=== PATIENT | male | born 1980 | race Caucasian/White ===

== ENCOUNTER 2024-01-22 21:29 | Emergency (ER) | payer OTHER, SELFPAY ==
[2024-01-22 21:29] VITALS: BP 169/98; PULSE 79; RESP 15; TEMP 36.1; O2SAT 100; BMI 36.7
--- NOTE | 2024-01-22 23:57 | CT_ITS ---
INDICATION: ? Mastoiditis EXAMINATION: CT IAC TEMPORAL BONES - CT IAC/PF/Orbit/Sella W/O Contrast Injection TECHNIQUE: Routine noncontrast CT protocol was performed of the internal auditory canals and temporal bones. 2-D reformats were performed by the technologist. The protocol utilizes one or more of the following dose reduction techniques: automated exposure control, adjustment of mA and/or kV according to patient size,and/or use of iterative reconstruction technique. IV Contrast dosage and agent: None. RADIATION DOSAGE (If Supplied By Facility): CTDIvol = ( 67.58 ) mGy, DLP = ( 1304.75 ) mGycm COMPARISON: FINDINGS: RIGHT SIDE: No fracture. SUPERFICIAL SOFT TISSUES: Unremarkable. MASTOID AIR CELLS: Well aerated, unremarkable. EXTERNAL AUDITORY CANALS: Clear. MIDDLE EAR CAVITIES: Well aerated. Ossicles and scutum intact. INTERNAL AUDITORY CANALS: Unremarkable bilateral internal auditory canals. No osseous erosion or widening of the canal. INNER EAR: Unremarkable cochlea, vestibule and semicircular canals. LEFT SIDE: No fracture. SUPERFICIAL SOFT TISSUES: Unremarkable. MASTOID AIR CELLS: Partial opacification of the mastoid air cells. EXTERNAL AUDITORY CANALS: There is complete opacification of the external auditory canal suggesting otitis externa. MIDDLE EAR CAVITIES: Partial opacification of the left middle ear suggesting otitis media. Ossicles and scutum intact. INTERNAL AUDITORY CANALS: Unremarkable bilateral internal auditory canals. No osseous erosion or widening of the canal. INNER EAR: Unremarkable cochlea, vestibule and semicircular canals. VISUALIZED BRAIN AND POSTERIOR FOSSA: Cerebello-pontine angles are unremarkable. CT/Orb Sella Post Fossa Ear w/o IMPRESSION: Otitis externa and otitis media on the left. Electronically Signed: Ziyad Blackburn MD at 1:28 EDT Reading Location ID and State: [facility] / [place] Tel , Service support ,
[2024-01-23] MEDS: Morphine 4 MG/ML Syringe IV (00:18)
[2024-01-23] MEDS: Ondansetron 4 MG/2 ML Vial IV (00:18)
[2024-01-23 00:29] LABS: Anion Gap 7 (5-15); BUN 14 mg/dL (7-18); BUN/Creat Ratio 18.2 RATIO (10-20); Calcium,Total 9.5 mg/dL (8.5-10.1); Chloride 104 mmol/L (98-107); Creatinine, Serum 0.77 mg/dL (0.70-1.30); EST Glomerular Filtration Rate 116 mL/min (>60); Est Glom Filt Rate - Afr Amer 140 mL/min (>60); Estimated Creatinine Clearance 159.28 ml/min; Glucose 102 mg/dL (74-106); Potassium 3.9 mmol/L (3.5-5.1); Sodium Level 136 mmol/L (136-145)
[2024-01-23 00:38] LABS: Absolute Lymphocyte Count 3.31 X10^3/uL (0.83-4.51); Absolute Neutrophil Count 7.7 X10^3/uL (2.0-7.7); Basophil# 0.09 X10^3/uL; Basophil% 0.7 % (0-1); Eosinophil# 0.37 X10^3/uL; Eosinophils% 2.9 % (0-5); Hematocrit 49.7 % (40-54); Hemoglobin 16.5 g/dL (13.0-16.5); Lymphocyte # 3.31 X10^3/ul (0.83-4.51); Lymphocyte % 26.3 % (19-41); Mean Corp Hgb Conc 33.2 g/dL (32-36); Mean Corpuscular Volume 93.2 fL (80-94); Monocyte# 1.02 X10^3/uL; Monocyte% 8.1 % (0-10); NRBC Flagged by Analyzer 0 % (0-5); Neutrophil # 7.73 X10^3/uL (2.7-7.7); Neutrophil % 61.4 % (47-70); Platelet Count 251 K/mm3 (150-450); RBC Distribution Width CV 13.6 % (11.6-14.6); RBC Distribution Width SD 46.4 fl (35.1-43.9); Red Blood Count 5.33 M/mm3 (4.6-6.2); White Blood Count 12.6 K/mm3 (4.4-11.0)
[2024-01-23 00:47] LABS: Lactic Acid 1.1 mmol/L (0.4-1.9)
[2024-01-23 01:29] VITALS: BP 150/115; PULSE 84; RESP 16; TEMP 36.4; O2SAT 97
--- NOTE | 2024-01-23 01:50 | EX.ED.DYSGE1 ---
HPI History of Present Illness Chief Complaint: Ear Problem Informant: patient Narrative Narrative: Patient is a 43-year-old male with past medical history of hypertension and depression. He states he noticed he was having left ear pain and swelling for approximately 1 week. He states there was no associated discharge or trauma prior to the swelling beginning. He went to an urgent care on Monday and was diagnosed with otitis externa and placed on Ciprodex eardrops. He states he used those for the past 24 hours but despite doing so he feels like he has had increased swelling and pain and therefore comes in for evaluation. Patient denies any history of immunosuppression [facility] Medical History (Updated 01/23/24 @ 02:[address] Alexis Mckeon, ) Cough Acute pharyngitis, unspecified Depression Seasonal allergies Shoulder pain HTN (hypertension) Home Medications ?Medication ?Instructions ?Recorded ?Last Taken ?Type amoxicillin 875 mg-potassium 1 tab PO BID #20 tabs 10/22/22 Unknown Rx clavulanate 125 mg tablet atorvastatin 10 mg tablet 10 mg PO DAILY 01/23/24 Unknown History ciprofloxacin HCl 500 mg tablet 500 mg PO BID 10 days #20 tabs 01/23/24 Unknown Rx (Cipro) escitalopram oxalate 10 mg tablet 10 mg PO DAILY 01/23/24 Unknown History hydrochlorothiazide 25 mg tablet 25 mg PO DAILY 01/23/24 Unknown History losartan 50 mg tablet 50 mg PO DAILY 01/23/24 Unknown History ondansetron 4 mg disintegrating 4 mg PO TID PRN nausea and 01/23/24 Unknown Rx tablet vomiting #21 tabs oxycodone-acetaminophen 5 mg-325 1 tab PO Q6H PRN pain 3 days #12 01/23/24 Unknown Rx mg tablet (Percocet) tabs Allergy/AdvReac Type Severity Reaction Status Date / Time codeine Allergy Intermediate Nausea Verified 01/22/24 21:30 Social History (Updated 10/22/22 @ 13:18 by Audra Muñiz) Smoking Status: Current every day smoker tobacco type: cigarettes ROS ROS ED Constitutional Constitutional ED: Denies chills or fever(s) ENT ENT ED: Reports ear pain left; Denies rhinorrhea or sore throat Cardiovascular Cardiovascular: Denies chest pain Respiratory/Chest Respiratory/Chest: Denies cough or dyspnea Gastrointestinal Gastrointestinal: Denies abdominal pain, diarrhea, nausea or vomiting Genitourinary Genitourinary ED: Denies dysuria Musculoskeletal Musculoskeletal: Denies myalgias or neck pain Integumentary Denies rash Neurologic Neurologic: Denies headache(s) Psychiatric Psychiatric: Reports depression Hematologic/Lymphatic Hematologic/Lymphatic: Denies easy bleeding or easy bruising Allergic/Immunologic Allergic/Immunologic ED: Denies mouth swelling or tongue swelling EXAM Physical Exam Const Vital Signs: 01/22/24 21:29 01/23/24 01:29 01/23/24 01:29 Temperature 97 F L 97.5 F L Temperature Source Temporal Pulse Rate 79 84 84 Respiratory Rate 15 16 16 Blood Pressure 169/98 H 150/115 H 150/115 H Blood Pressure Mean 121 126 126 Pulse Ox 100 97 97 Positive well nourished and well developed General Appearance ED: well developed HEENT HEENT Narrative: The left ear canal is severely edematous and the TM cannot be visualized secondary to this. There is no obvious discharge present in the canal. The patient's outer upper half of the left ear is also edematous without erythema or warmth. There is swelling along the left anterior aspect of the ear near the preauricular lymph node without obvious abscess formation. There is faint left sided mastoid tenderness with palpation but no overlying erythema or swelling. No tongue or lip swelling noted no oral lesions no airway edema or compromise No secondary findings to suggest infection of the posterior pharynx Right ear, ear canal, and tympanic membrane are normal Eyes PERRL and EOMs intact bilaterally Neck supple Neck Narrative: No nuchal rigidity or meningeal signs Resp normal respiratory effort and clear to auscultation bilaterally Cardio regular rate and regular rhythm Extremity normal to inspection Neuro oriented x3, CN's II-XII intact bilaterally and no sensory deficits noted Sensorium / Orientation: alert Motor Exam: strength 5/5 throughout Psych mental status grossly normal Skin Skin Narrative: Soft tissue swelling along the left preauricular lymph node and left ear as documented above MDM MDM MDM Narrative Medical decision making narrative: Patient arrived to the ER hypertensive but otherwise with stable vitals. He has only been on eardrops for approximately 24 hours but with the patient reported increased swelling and pain and there is concern for malignant otitis externa versus mastoiditis versus osteomyelitis. Basic blood work was obtained and shows mild leukocytosis of 12.6 but no lactic acidosis or elevation to his absolute neutrophil count. CT of the orbits did reveal changes consistent with otitis media and otitis externa but did not show abscess formation free air or bony destruction. Therefore at this time as he is afebrile and only lab abnormalities mild leukocytosis and the CT scan does not reveal perforation or bony erosion I do not feel there is need for admission. Patient will continue the eardrops provided by urgent care the oral Cipro will be added secondary to concern for malignant otitis externa. However as he is hemodynamically stable he will follow-up with ENT as an outpatient as I do not feel there is need for IV antibiotics at this time. The patient did have an ear wick placed as his physical exam showed complete obstruction of the left ear canal and this will be required to transmit the otic antibiotics The patient did voice his understanding of the plan and otherwise is safe for discharge. History & Record Review Discussion w/independent historian: Patient Lab Data Attestation: I reviewed the patient's lab results. Labs: Laboratory Results - last 24 hr 01/23/24 00:08 WBC 12.6 H RBC 5.33 Hgb 16.5 Hct 49.7 MCV 93.2 MCH 31.0 MCHC 33.2 RDW Std Deviation 46.4 H RDW Coeff of [place] 13.6 Plt Count 251 MPV 11.0 Immature Gran % (Auto) 0.600 Neut % (Auto) 61.4 Lymph % (Auto) 26.3 [place] % (Auto) 8.1 Eos % (Auto) 2.9 Baso % (Auto) 0.7 Absolute Neuts (auto) 7.7 Absolute Lymphs (auto) 3.31 Nucleated RBC % 0 Sodium 136 Potassium 3.9 Chloride 104 Carbon Dioxide 25.0 Anion Gap 7 BUN 14 Creatinine 0.77 Estim Creat Clear Calc 159.28 Est GFR (MDRD) Af Amer 140 Est GFR (MDRD) Non-Af 116 BUN/Creatinine Ratio 18.2 Glucose 102 Lactic Acid 1.1 Calcium 9.5 Radiography Diagnostic Testing: Clinical Impression(s) from Imaging Studies CT Orbit Sella Inner 01/22/24 23:57 IMPRESSION: Otitis externa and otitis media on the left. Electronically Signed: Ziyad Blackburn MD at 1:28 EDT , Discharge Plan Triage Chief Complaint: Ear Problem ED Provider: Alexis Mckeon Dx/Rx/DC Orders Clinical Impression: Otitis externa, Otitis media, HTN (hypertension), Depression Instructions: ED Otitis Media Adult, ED External Ear Infection (Adult) Prescriptions: New ciprofloxacin HCl [Cipro] 500 mg tablet 500 mg PO BID 10 Days Qty: 20 0RF ondansetron 4 mg tablet,disintegrating 4 mg PO TID PRN (Reason: nausea and vomiting) Qty: 21 0RF oxycodone-acetaminophen [Percocet] 5-325 mg tablet 1 tab PO Q6H PRN (Reason: pain) 3 Days Qty: 12 0RF No Action amoxicillin-pot clavulanate 875-125 mg tablet 1 tab PO BID Qty: 20 0RF losartan 50 mg tablet 50 mg PO DAILY atorvastatin 10 mg tablet 10 mg PO DAILY hydrochlorothiazide 25 mg tablet 25 mg PO DAILY escitalopram oxalate 10 mg tablet 10 mg PO DAILY Primary Care Provider: Genevieve Park Referrals: Fantasma Johnson MD [Med Staff - Active Staff] - Genevieve Park MD [Primary Care Provider] - Activity Restrictions/Additional Instructions: Please continue the eardrops that were given to you by the urgent care that had the oral ciprofloxacin prescribed by the ER for further infection control. Follow-up with the ear nose and throat doctor for further evaluation and return to the ER should you have any further concerns. Print Language: Portuguese Disposition Disposition: Home, Self Care Discharge Date/Time: 01/23/24 02:15
[2024-01-23] MEDS: oxyCODONE 5 MG Tablet 10 MG PO (02:09)
[2024-01-23] MEDS: Ciprofloxacin 500 MG Tablet PO (02:09)
== END 2024-01-23 02:15 | disposition home or self-care (01) ==
PROVIDERS: Emergency Provider Emergency Medicine; PCP Family Medicine; Visit Provider Emergency Medicine
DX: H66.92 Otitis media, unspecified, left ear (principal); H60.92 Unspecified otitis externa, left ear; I10 Essential (primary) hypertension; F32.A Depression, unspecified; Z79.899 Other long term (current) drug therapy; F17.210 Nicotine dependence, cigarettes, uncomplicated
CPT/HCPCS: 70480; 80048; 83605; 85025; 96374; 96375; 99284; A4216; J2405

== ENCOUNTER 2024-06-16 23:48 | Emergency (ER) | payer OTHER, SELFPAY ==
[2024-06-16 23:48] VITALS: BP 226/91; PULSE 83; RESP 19; TEMP 36.7; O2SAT 98; BMI 39.5
[2024-06-16 23:53] VITALS: BP 226/91
[2024-06-17] MEDS: diazePAM 5 MG Tablet PO (00:17)
[2024-06-17] MEDS: Acetaminophen 500 MG Tablet 1000 MG PO (00:17)
--- NOTE | 2024-06-17 00:26 | EDS_ITS ---
HPI History of Present Illness Chief Complaint: Other, Pain/Inj Informant: patient and spouse/S.O. Narrative Narrative: Nontraumatic left-sided neck pain around 2 PM today while sitting at the computer. No pain down the arm or in the scapular region. Reports he took an Aleve and then dose of Flexeril earlier this afternoon. Symptoms resolved. After dinner symptoms return however also has pain in his left ear and left jaw. He had history of serious ear infection in the past per patient. He has no fevers or chills. Denies hearing loss. On arrival blood pressure elevated 226/91 denies headache chest pain abdominal pain nausea or vomiting. History of hypertension and states he is compliant with his medication last dose this morning. States his typical blood pressure is normal with his medications. Prior similar symptoms: Yes [facility] Medical History Cough Acute pharyngitis, unspecified Depression Seasonal allergies Shoulder pain HTN (hypertension) Home Medications ?Medication ?Instructions ?Recorded ?Last Taken ?Type amoxicillin 875 mg-potassium 1 tab PO BID #20 tabs 12/07 Unknown Rx clavulanate 125 mg tablet atorvastatin 10 mg tablet 10 mg PO DAILY 01/23/24 Unkn own History ciprofloxacin HCl 500 mg tablet 500 mg PO BID 10 days #20 tabs 01/23/24 Unknown Rx (Cipro) escitalopram oxalate 10 mg tablet 10 mg PO DAILY 01/22 Unknown History hydrochlorothiazide 25 mg tablet 25 mg PO DAILY Unknown History losartan 50 mg tablet 50 mg PO DAILY 01/23/24 Unkn own History ondansetron 4 mg disintegrating 4 mg PO TID PRN nausea and 01/23/24 Unknown Rx tablet vomiting #21 tabs oxycodone-acetaminophen 5 mg-325 1 tab PO Q6H PRN pain 3 days #12 01/23/24 Unknown Rx mg tablet (Percocet) tabs carbamazepine 100 mg 100 mg PO BID #30 tabs 06/17 Unknown Rx tablet,extended release,12 hr diazepam 5 mg tablet 5 mg PO Q8 PRN Muscle Spasm #20 06/17/24 Unknown Rx tabs Allergy/AdvReac Type Severity Reaction Status Date / Time codeine Allergy Intermediate Nausea Verified 06/16/24 23:53 Surgical History History of dental surgery Social History Smoking Status: Current every day smoker tobacco type: cigarettes ROS ROS ED Constitutional Constitutional ED: Denies chills, fever(s) or sweats ENT ENT ED: Denies sore throat Cardiovascular Cardiovascular: Denies chest pain, leg edema, palpitations or racing heartbeat Respiratory/Chest Respiratory/Chest: Denies cough, dyspnea or dyspnea on exertion Gastrointestinal Gastrointestinal: Denies abdominal pain, diarrhea, nausea or vomiting Genitourinary Genitourinary ED: Denies dysuria, hematuria or urinary frequency Musculoskeletal Musculoskeletal: Reports neck pain; Denies back pain or extremity pain Integumentary Denies rash or wounds Neurologic Neurologic: Denies headache(s), paresthesias or weakness EXAM Physical Exam Const Vital Signs: 06/16/24 23:48 06/16/24 23:53 06/16/24 23:54 Temperature 98.1 F Temperature Source Oral Pulse Rate 83 Respiratory Rate 19 H Respiratory Effort Normal Non-Labored Respiratory Pattern Normal Blood Pressure 226/91 H 226/91 H Blood Pressure Mean 136 136 Pulse Ox 98 Oxygen Delivery Method Room Air Room Air 06/17/24 00:54 06/17/24 02:05 Temperature Temperature Source Pulse Rate Respiratory Rate Respiratory Effort Respiratory Pattern Blood Pressure 218/98 H 175/92 H Blood Pressure Mean 138 119 Pulse Ox Oxygen Delivery Method Positive well nourished and well developed General Appearance ED: well developed and NAD HEENT Reports moist mucous membranes normocephalic and atraumatic Eyes General Eye ED: Yes normal appearance of both eyes Neck full ROM Neck Narrative: Somatic function cervical spine right side side bent rotated to the right with extension. Chest Wall Chest: Negative for tenderness Resp normal respiratory effort and normal air movement Effort and Inspection: symmetric chest movement; Negative for respiratory distress Cardio regular rate, regular rhythm and no murmurs Peripheral Pulses: pulses 2+ throughout GI normal to inspection, nondistended, normoactive bowel sounds and non-tender Palpation: Negative for guarding or rebound tenderness present Extremity normal to inspection General Extremety ED: Negative for edema or tenderness General Extremity: Negative for edema Neuro oriented x3 and no sensory deficits noted Sensorium / Orientation: awake and alert Skin no rashes or lesions noted and no wounds MDM MDM MDM Narrative Medical decision making narrative: Interventions / MDM: Differential diagnosis: Cervical neck strain, spinal dysfunction cervical spine, elevated blood pressure. Trigeminal neuralgia. Diagnosis considered but do not suspect: No clinical hypertensive emergency. My EKG interpretation: N/A Imaging independently reviewed and interpreted by myself: N/A External documents reviewed: N/A Test considered but not ordered:N/A ED course: Patient elevated blood pressure reported compliance with normal blood pressure with medications. Likely situation with this neck pain. Discussed osteopathic manipulation bedside for which she agreed to perform facilitate position release with improved movement. Send order for Tylenol and Valium to help additional symptoms. Will monitor and recheck blood pressure. 0100: Neck pain and movement improving. Her blood pressure 218/98. He reports continued pain left face maxillary nerve region. Discussed trigeminal neuralgia symptoms. Discussed starting treatment for which she agrees. Will start with Tegretol 100 mg p.o. 0200: Reevaluation facial pain improving blood pressure down to 175/92. However blood pressure likely situational from pain. He states he is compliant with the blood pressure medicines. Discussed keeping a log of his blood pressure medicine. Given prescription 2 weeks of carbamazepine for trigeminal neuralgia. Will switch to more Valium for his neck strain. He will hold his Flexeril. He will avoid NSAIDs and use Tylenol. He has an upcoming appoint with his PCP for outpatient reevaluation. All questions were answered. Re-evaluation: stable Disposition discussed with patient/family/significant other: Patient and significant other Case discussed with consulting clinician: N/A This note was generated with [employer] dictation software. It may contain incorrect words, spelling, and punctuation that were not noted in checking the note before signing. Discharge Plan Triage Chief Complaint: Other, Pain/Inj ED Provider: Guero Mahmood Dx/Rx/DC Orders Clinical Impression: Cervical somatic dysfunction, Trigeminal neuralgia, Elevated blood pressure reading in office with diagnosis of hypertension Instructions: Hypertension Dc, ED Neck Sprain or Strain, ED Trigeminal Neuralgia Prescriptions: New diazepam 5 mg tablet 5 mg PO Q8 PRN (Reason: Muscle Spasm) Qty: 20 0RF carbamazepine 100 mg tablet extended release 12 hr 100 mg PO BID Qty: 30 0RF No Action amoxicillin-pot clavulanate 875-125 mg tablet 1 tab PO BID Qty: 20 0RF losartan 50 mg tablet 50 mg PO DAILY atorvastatin 10 mg tablet 10 mg PO DAILY hydrochlorothiazide 25 mg tablet 25 mg PO DAILY escitalopram oxalate 10 mg tablet 10 mg PO DAILY ciprofloxacin HCl [Cipro] 500 mg tablet 500 mg PO BID 10 Days Qty: 20 0RF ondansetron 4 mg tablet,disintegrating 4 mg PO TID PRN (Reason: nausea and vomiting) Qty: 21 0RF oxycodone-acetaminophen [Percocet] 5-325 mg tablet 1 tab PO Q6H PRN (Reason: pain) 3 Days Qty: 12 0RF Primary Care Provider: Genevieve Park Referrals: Genevieve Park MD [Primary Care Provider] - Keep Mansi appointment Activity Restrictions/Additional Instructions: Use Tylenol up to 1 g every 6 hours as needed for pain. Use Valium as needed for neck pain. Avoid your Aleve and NSAIDs at this time as he had elevated blood pressure. Hold your Flexeril while taking Valium. Facial pain being treated with trigeminal neuralgia. Take carbamazepine as prescribed. Blood pressure elevated in the ED with treatment of your pain symptoms down to 175/92. Continue home blood pressure medicines. Keep a log of your blood pressure. Follow-up with your doctor for reevaluation. Print Language: Hungarian Disposition Disposition: Home, Self Care Discharge Date/Time: 06/17/24 02:12
[2024-06-17 00:54] VITALS: BP 218/98
[2024-06-17] MEDS: carBAMazepine 200 MG Tablet 100 MG PO (01:08)
[2024-06-17 02:05] VITALS: BP 175/92
== END 2024-06-17 02:12 | disposition home or self-care (01) ==
PROVIDERS: Emergency Provider Emergency Medicine; PCP Family Medicine; Visit Provider Emergency Medicine
DX: M54.2 Cervicalgia (principal); G50.0 Trigeminal neuralgia; M99.01 Segmental and somatic dysfunction of cervical region; R03.0 Elevated blood-pressure reading, without diagnosis of hypertension; F32.A Depression, unspecified; Z79.899 Other long term (current) drug therapy; I10 Essential (primary) hypertension; F17.210 Nicotine dependence, cigarettes, uncomplicated
CPT/HCPCS: 99283

== ENCOUNTER 2024-12-09 06:06 | Day surgery (SDC) | payer OTHER, SELFPAY ==
[2024-12-09] VITALS (9 sets, daily range): BP systolic 84–168; BP diastolic 46–86; PULSE 60–81; RESP 16; TEMP 36.3–36.4; O2SAT 94–99; BMI 37.9
--- OUTSIDE RECORDS SUMMARY | 2024-12-09 06:08 | XMS RPT_ITS | CCD ---
Author Organization [facility] Care Team Providers Care Apple Checker Name Role Phone Tena Gutierrez MD Primary Care Provider Stefanie Park MD Primary Care Provider [phone] STEFANIE PARK Primary Care Unavailable Stefanie Park MD Primary Care Provider Stefanie Park MD Primary Care Provider Xavier MACIAS, Dr. Vallejo Primary Care Provider Dr. Stefanie Park MD Referring Provider [phone] Kam GARCIA-CGiana Attending Provider [phone] Stefanie Park Primary Care Unavailable Alexis Mckeon Attending Unavailable Park, Stefanie Primary Care Unavailable Guero Mahmood Attending Unavailable Park, Stefanie Primary Care Unavailable Rich Prado Attending Unavailable Park, Stefanie Referring Unavailable Park, Stefanie Referring Unavailable Park, Stefanie Primary Care Unavailable Giana Humphrey Attending Unavailable Allergies Allergy Classification Reported Allergen(s) Allergy Type Date of Onset Reaction(s) Facility (2 sources) Codeine Drug Allergy 0 Other: See Comments [facility] (1 source) Codeine Drug Allergy 5 [facility] Repository Medications Current Medications Medication Drug Class(es) Dates Sig (Normalized) Sig (Original) acetaminophen 325 mg / oxyCODONE hydrochloride 5 mg oral tablet (1 source) Opioid Agonist Start: 01-23-2024 take 1 tablet by mouth every six hours as needed for pain Oxycodone-Acetamin ophen (Percocet) 5-325 mg tablet Active 1 {tbl} PO EVERY 6 HOURS as needed for pain 12 3 0 January 23, 2024 Otitis externa Unspecified otitis externa, unspecified ear amoxicillin 875 mg / clavulanate 125 mg oral tablet (1 source) Penicillin-class Antibacterial Start: 10-22-2022 Amoxicillin-Pot Clavulanate 875-125 mg tablet Active 1 {tbl} PO TWICE A DAY October 22, 2022 12:00am atorvastatin 10 mg oral tablet (2 sources) HMG-CoA Reductase Inhibitor Start: 01-23-2024 take 1 tablet by mouth once daily Atorvastatin 10 mg tablet Active 10 mg PO DAILY January 23, 2024 12:00am take 1 tablet by mouth once margaret y atorvastatin (LIPITOR) 10 mg tablet Take 10 mg by mouth once daily. Active 12 hr carBAMazepine 100 mg extended release oral tablet (1 source) Mood Stabilizer Start: 06-17-2024 take 1 tablet by mouth twice daily Carbamazepine 100 mg tablet extended release 12 hr Active 100 mg PO TWICE A DAY June 17, 2024 1:00am ciprofloxacin 500 mg oral tablet (1 source) Quinolone Antimicrobial Start: 01-23-2024 take 1 tablet by mouth twice daily Ciprofloxacin Hcl (Cipro) 500 mg tablet Active 500 mg PO TWICE A DAY January 23, 2024 12:00am ciprofloxacin 3 mg/ml / dexamethasone 1 mg/ml otic suspension (1 source) Corticosteroid, Quinolone Antimicrobial Start: 01-21-2024 End: 01-28-2024 ciprofloxacin-dexA METHasone (CIPRODEX) 0.3-0.1 % otic suspension Indications: Acute otitis externa of left ear, unspecified type Use 4 Drops in the left ear two times a day for 7 days. 7.5 mL 01/21/2024 01/28/2024 Active diazePAM 5 mg oral tablet (1 source) Benzodiazepine Start: 06-17-2024 take 1 tablet by mouth every eight hours as needed for muscle spasms Diazepam 5 mg tablet Active 5 mg PO EVERY 8 HOURS as needed for Muscle Spasm June 17, 2024 1:00am escitalopram 10 mg oral tablet (2 sources) Serotonin Reuptake Inhibitor Start: 01-23-2024 take 1 tablet by mouth once daily Escitalopram Oxalate 10 mg tablet Active 10 mg PO DAILY January 23, 2024 12:00am take 1 tablet by mouth once margaret y escitalopram oxalate (LEXAPRO) 20 mg tablet Take 20 mg by mouth once daily. Active hydroCHLOROthiazide 25 mg oral tablet (2 sources) Thiazide Diuretic Start: 10-08-2024 take 1 tablet by mouth once daily Hydrochlorothiazide 25 mg tablet Active 25 mg PO DAILY January 23, 2024 12:00am take 1 tablet by mouth once margaret y hydroCHLOROthiazide 25 mg tablet Take 25 mg by mouth once daily. Active losartan potassium 50 mg oral tablet (2 sources) Angiotensin 2 Receptor Candido Start: 01-23-2024 take 1 tablet by mouth once daily Losartan 50 mg tablet Active 50 mg PO DAILY January 23, 2024 12:00am take 1 tablet by mouth once margaret y losartan (COZAAR) 50 mg tablet Take 50 mg by mouth once daily. Active ondansetron 4 mg disintegrating oral tablet (1 source) Serotonin-3 Receptor Antagonist Start: 01-23-2024 take 1 tablet by mouth three times daily as needed for nausea and vomiting Ondansetron 4 mg tablet,disintegrating Active 4 mg PO THREE TIMES A DAY as needed for nausea and vomiting 21 0 January 23, 2024 1:51am Problems Active Problems Problem Classification Problem Date Documented Da te Episodic/Chronic Essential hypertension (2 sources) Elevated blood pressure; Translations: [Essential (primary) hypertension] 06-25-2024 Chronic Mood disorders (1 source) Depressive disorder; Translations: [Depression] 10-22-2022 Chronic Other bone disease and musculoskeletal deformities (1 source) Cervical somatic dysfunction; Translations: [Segmental and somatic dysfunction of cervical region] 06-25-2024 Episodic Other ear and sense organ disorders (1 source) Otitis externa; Translations: [Unspecified otitis externa, unspecified ear] 01-31-2024 Chronic Other ear and sense organ disorders (1 source) Acute otitis externa of left ear; Translations: [Unspecified acute noninfective otitis externa, left ear] 01-21-2024 Episodic Other lower respiratory disease (1 source) Cough; Translations: [Cough] 10-22-2022 Episodic Other nervous system disorders (1 source) Trigeminal neuralgia; Translations: [Trigeminal neuralgia] 06-25-2024 Episodic Other upper respiratory infections (1 source) Acute pharyngitis; Translations: [Acute pharyngitis, unspecified] 10-22-2022 Episodic Otitis media and related conditions (1 source) Otitis media; Translations: [Otitis media, unspecified, unspecified ear] 01-31-2024 Episodic Past or Other Problems Problem Classification Problem Date Documented Da te Episodic/Chronic Other ear and sense organ disorders (1 source) Otalgia, left ear; Translations: [Otalgia, left ear] Onset: 02-16-2024 Episodic Spondylosis; intervertebral disc disorders; other back problems (1 source) Cervicalgia; Translations: [Cervicalgia] Onset: 06-28-2024 Episodic Results Test Name Value Interpretation Reference Range Facility Gastroenterology Visit Repor ton 11-05-2024 Gastroenterology Visit Report [facility] [address] [place] [address] OFFICE VISIT Date of Service: 11/05/24 MR#: [id number] Acct: [id number] Name: GOOD PEREZ Rep #: [id number] : 1980 Provider: ZAHRA cali Age/Sex: 43/M [place] [facility] [place]: Signed Intake Vital Signs 06/16/24 23:48 Height 5 ft 10 in Intake Visit Reasons: Positive FIT test Allergies codeine Allergy (Intermediate, Verified 11/05/24 14:10) Nausea Medications ???Medication ???Instructions ???Recorded ???Confirmed ???Type amoxicillin 875 mg-potassium 1 tab PO BID #20 tabs 10/22/22 Rx clavulanate 125 mg tablet atorvastatin 10 mg tablet 10 mg PO DAILY 01/23/24 11/05/24 H istory ciprofloxacin HCl 500 mg tablet 500 mg PO BID 10 days #20 tabs 12/0811/05/24 Rx (Cipro) escitalopram oxalate 10 mg tablet 10 mg PO DAILY 01/23/24 11/05/24 History hydrochlorothiazide 25 mg tablet 25 mg PO DAILY 01/23/24 11/05/24 H istory losartan 50 mg tablet 50 mg PO DAILY 01/23/24 11/05/24 H istory ondansetron 4 mg disintegrating 4 mg PO TID PRN nausea and 4 11/05/24 Rx tablet vomiting #21 tabs oxycodone-acetaminophen 5 mg-325 1 tab PO Q6H PRN pain 3 days #12 1 11/05/24 Rx mg tablet (Percocet) tabs carbamazepine 100 mg 100 mg PO BID #30 tabs 06/17/24 Rx tablet,extended release,12 hr diazepam 5 mg tablet 5 mg PO Q8 PRN Muscle Spasm #20 11/05/24 Rx tabs PFSH Medical History Cough Acute pharyngitis, unspecified Depression Seasonal allergies Shoulder pain HTN (hypertension) Surgical History History of dental surgery Social History Smoking Status: Current every day smoker tobacco type: cigarettes HPI HPI Details: GOOD PEREZ, is a 43 M who presents to the office today for establishment with [facility] regarding a positive fecal assay test. Referred by his PCP due to positive mail order stool testing. He denies family history of colon cancer and autoimmune disease. He denies abdominal pain, bloating, constipation, diarrhea, hematochezia, and melena. He reports complete BMs twice daily to every other day without straining. He reports difficulty chewing due to poor dentition. And reports that he can get combative when waking from anesthesia and states that it usually takes him longer to wake up from anesthesia. He smokes 2ppd, has the stuff that helps you quit, just needs to use it. He denies alcohol and illicit drug use. ROS Const Constitutional: Positive for weight change; No fatigue or fever(s) ENT ENT: No difficulty swallowing Gastro GI: No abdominal pain, belching, bloating, change in bowel habits, change in stool character, coffee ground emesis, constipation, cramping, diarrhea, heartburn, difficulty swallowing, feeling full early, excessive flatus, incontinent of stools, Vomiting blood/hematemesis, Blood in stool, loose stools, Black,tarry stools, nausea/dyspepsia, pain with swallowing, vomiting or other Musc Musculoskeletal: Positive for back pain, numbness and tingling; No joint pain Skin Skin: No yellowing of the eye or itchy eyes Neuro Neurology: Positive for numbness and tingling Psych Psychiatric: Positive for anxiety and No depression Endo Endocrine: Positive for weight change; No fatigue Aller/Imm Allergy/Immunologic: No itchy eyes Edgar/Lymp Hematologic/Lymphatic: No easy bleeding or easy bruising Exam Const General: cooperative, healthy appearing, comfortable and no acute distress Nutritional Appearance: average body habitus Orientation: alert and oriented x3 HENMT Head: normal to inspection Ears: hearing grossly normal bilaterally Eyes General: appearance normal, both eyes and all related structures Sclera: sclerae normal Neck Neck: normal visual inspection and full ROM Chest Chest palpation inspection: normal inspection of the chest Resp Effort Inspection: normal respiratory effort, able to speak in complete sentences and symmetric chest movement GI Inspection: obesity Auscultation: normal bowel sounds Palpation: soft and no hepatosplenomegaly Skin General: no rashes or lesions noted Neuro General: patient alert, patient oriented x3 and moves all extremities Cognition: normal cognition Speech: speech normal Gait: normal gait Extrem General: full ROM Psych Appearance: grossly normal Mental Status: mental status grossly normal Mood: congruent mood Judgment: judgment good Assessment and Plan Assessment and Plan (1) Screening for colorectal cancer: Status: Acute Plan GOOD PEREZ, is a 43 M who presents to the (more content not included)... Normal [facility] Emergency Department Summary on 06-17-2024 Emergency Department Summary [facility] Medical Records Department [address] [place] [address] Emergency Department Summary 06/17/24 MR#: [id number] Acct: [id number] Name: GOOD PEREZ Rep #: [id number] : 1980 43 From: Guero Vega PCP: Dr. Stefanie Park MD Status:DEP ER Location: ED HPI History of Present Illness Chief Complaint: Other, Pain/Inj Informant: patient and spouse/S.O. Narrative Narrative: Nontraumatic left-sided neck pain around 2 PM today while sitting at the computer. No pain down the arm or in the scapular region. Reports he took an Aleve and then dose of Flexeril earlier this afternoon. Symptoms resolved. After dinner symptoms return however also has pain in his left ear and left jaw. He had history of serious ear infection in the past per patient. He has no fevers or chills. Denies hearing loss. On arrival blood pressure elevated 226/91 denies headache chest pain abdominal pain nausea or vomiting. History of hypertension and states he is compliant with his medication last dose this morning. States his typical blood pressure is normal with his medications. Prior similar symptoms: Yes [facility] Medical History Cough Acute pharyngitis, unspecified Depression Seasonal allergies Shoulder pain HTN (hypertension) Home Medications ???Medication ???Instructions ???Recorded ???Last Taken ???Type amoxicillin 875 mg-potassium 1 tab PO BID #20 tabs 10/22/22 Unk nown Rx clavulanate 125 mg tablet atorvastatin 10 mg tablet 10 mg PO DAILY 01/23/24 Unknown Hi story ciprofloxacin HCl 500 mg tablet 500 mg PO BID 10 days #20 tabs 12/08 Unknown Rx (Cipro) escitalopram oxalate 10 mg tablet 10 mg PO DAILY 01/23/24 Unknown H istory hydrochlorothiazide 25 mg tablet 25 mg PO DAILY 01/23/24 Unknown Hi story losartan 50 mg tablet 50 mg PO DAILY 01/23/24 Unknown Hi story ondansetron 4 mg disintegrating 4 mg PO TID PRN nausea and 4 Unknown Rx tablet vomiting #21 tabs oxycodone-acetaminophen 5 mg-325 1 tab PO Q6H PRN pain 3 days #12 1 Unknown Rx mg tablet (Percocet) tabs carbamazepine 100 mg 100 mg PO BID #30 tabs 06/17/24 Un known Rx tablet,extended release,12 hr diazepam 5 mg tablet 5 mg PO Q8 PRN Muscle Spasm #20 Unknown Rx tabs Allergy/AdvReac Type Severity Reaction Status Date / Time codeine Allergy Intermediate Nausea Verified 06/16/24 23:53 Surgical History History of dental surgery Social History Smoking Status: Current every day smoker tobacco type: cigarettes ROS ROS ED Constitutional Constitutional ED: Denies chills, fever(s) or sweats ENT ENT ED: Denies sore throat Cardiovascular Cardiovascular: Denies chest pain, leg edema, palpitations or racing heartbeat Respiratory/Chest Respiratory/Chest: Denies cough, dyspnea or dyspnea on exertion Gastrointestinal Gastrointestinal: Denies abdominal pain, diarrhea, nausea or vomiting Genitourinary Genitourinary ED: Denies dysuria, hematuria or urinary frequency Musculoskeletal Musculoskeletal: Reports neck pain; Denies back pain or extremity pain Integumentary Denies rash or wounds Neurologic Neurologic: Denies headache(s), paresthesias or weakness EXAM Physical Exam Const Vital Signs: 06/16/24 23:48 06/16/24 23:53 06/16/24 23:54 Temperature 98.1 F Temperature Source Oral Pulse Rate 83 Respiratory Rate 19 H Respiratory Effort Normal Non-Labored Respiratory Pattern Normal Blood Pressure 226/91 H 226/91 H Blood Pressure Mean 136 136 Pulse Ox 98 Oxygen Delivery Method Room Air Room Air 06/17/24 00:54 06/17/24 02:05 Temperature Temperature Source Pulse Rate Respiratory Rate Respiratory Effort Respiratory Pattern Blood Pressure 218/98 H 175/92 H Blood Pressure Mean 138 119 Pulse Ox Oxygen Delivery Method Positive well nourished and well developed General Appearance ED: well developed and NAD HEENT Reports moist mucous membranes normocephalic and atraumatic Eyes General Eye ED: Yes normal appearance of both eyes Neck full ROM Neck Narrative: Somatic function cervical spine right side side bent rotated to the right with extension. Chest Wall Chest: Negative for tenderness Resp normal respiratory effort and normal air movement Effort and Inspection: symmetric chest movement; Negative for respiratory distress Cardio regular rate, regular rhythm and no murmurs Peripheral Pulses: pulses 2+ throughout GI normal to inspection, nondistended, normoactive bowel sounds and non-tender Palpation: Negative for guarding or rebound tenderness present Extremity (more content not included)... Normal [facility] 36on 05-31-2024 36 [facility] is needing Clarification on medication if FLUoxetine HCl (10 MG Tablet) is replacing Escitalopram Oxalate (20 MG Tablet) or notand if Atorvastatin Calcium (10 MG Tablet) is replacing Rosuvastatin Calcium (10 MG Tablet) or not Normal [facility] Basic Metabolic Profile (BMP )on 01-23-2024 BUN/CRE 18.2 RATIO Normal 02-03 [facility] Comment on above: Performed By: #### L 500.2500, L100.0100, [id number] #### [facility] Laboratory [address] [place], [address] CA,Total 9.5 mg/dL Normal 8.5-10.1 [facility] Comment on above: Performed By: #### L 500.2500, L100.0100, [id number] #### [facility] Laboratory [address] [place], [address] Chloride [Moles/Vol] 104 mmol/L Normal 98-107 [facility] Comment on above: Performed By: #### L 500.2500, L100.0100, [id number] #### [facility] Laboratory [address] [place], [address] CO2 [Moles/Vol] 25.0 mmol/L Normal 21.0-32.0 [facility] Comment on above: Performed By: #### L 500.2500, L100.0100, [id number] #### [facility] Laboratory [address] [place], [address] Creatinine [Mass/Vol] 0.77 mg/dL Normal 0.70-1.30 [facility] Comment on above: Result Comment: The validity of the calculated GFR GFRAA in patients over 70 years has not been determined. Clinical correlation is essential. Performed By: #### L 500.2500, L100.0100, [id number] #### [facility] Laboratory [address] [place], [address] ECRCL 159.28 ml/min Normal [facility] Comment on above: Performed By: #### L 500.2500, L100.0100, [id number] #### [facility] Laboratory [address] [place], [address] EST GFR - AA 140 mL/min Normal >60 [facility] Comment on above: Result Comment: Afri can Nigerien GFR Calc Performed By: #### L 500.2500, L100.0100, [id number] #### [facility] Laboratory [address] [place], [address] GAP 7 Normal 5-15 [facility] Comment on above: Performed By: #### L 500.2500, L100.0100, [id number] #### [facility] Laboratory [address] [place], [address] GFR/1.73 sq M.predicted among non-blacks MDRD (S/P/Bld) [Vol rate/Area] 116 mL/min/{1.73_m2} Normal >60 [facility] Comment on above: Result Comment: Non- GFR Calc Performed By: #### L 500.2500, L100.0100, [id number] #### [facility] Laboratory [address] [place], [address] Glucose [Mass/Vol] 102 mg/dL Normal 74-106 [facility] Comment on above: Result Comment: Fast ing Glucose result from 100 to 125 mg/dL suggests IMPAIRED HOMEOSTASIS per A.D.A. criteria. Performed By: #### L 500.2500, L100.0100, [id number] #### [facility] Laboratory [address] [place], [address] Potassium [Moles/Vol] 3.9 mmol/L Normal 3.5-5.1 [facility] Comment on above: Performed By: #### L 500.2500, L100.0100, [id number] #### [facility] Laboratory [address] [place], [address] Sodium [Moles/Vol] 136 mmol/L Normal 136-145 [facility] Comment on above: Performed By: #### L 500.2500, L100.0100, [id number] #### [facility] Laboratory [address] [place], [address] Urea nitrogen [Mass/Vol] 14 mg/dL Normal 7-18 [facility] Comment on above: Performed By: #### L 500.2500, L100.0100, [id number] #### [facility] Laboratory [address] [place], [address] CBC W/Diff, Automatedon 10-0 8-4 Absolute Lymph 3.31 X10 3/uL Normal 0.83-4.51 [facility] Comment on above: Performed By: #### L 500.2500, L100.0100, [id number] #### [facility] Laboratory [address] [place], [address] Absolute Neut 7.7 X10 3/uL Normal 2.0-7.7 [facility] Comment on above: Performed By: #### L 500.2500, L100.0100, [id number] #### [facility] Laboratory [address] [place], [address] Basophils/100 WBC (Bld) 0.7 % Normal 0-1 [facility] Comment on above: Performed By: #### L 500.2500, L100.0100, [id number] #### [facility] Laboratory [address] [place], [address] Eosinophils/100 WBC (Bld) 2.9 % Normal 0-5 [facility] Comment on above: Performed By: #### L 500.2500, L100.0100, [id number] #### [facility] Laboratory [address] [place], [address] Erythrocyte distribution width (RBC) [Ratio] 13.6 % Normal 11.6-14.6 [facility] Comment on above: Performed By: #### L 500.2500, L100.0100, [id number] #### [facility] Laboratory [address] [place], [address] Hematocrit (Bld) [Volume fraction] 49.7 % Normal 40-54 [facility] Comment on above: Performed By: #### L 500.2500, L100.0100, [id number] #### [facility] Laboratory [address] [place], [address] Hemoglobin (Bld) [Mass/Vol] 16.5 g/dL Normal 13.0-16.5 [facility] Comment on above: Performed By: #### L 500.2500, L100.0100, [id number] #### [facility] Laboratory [address] [place], [address] IG% 0.600 Normal 0.0-0.9 [facility] Comment on above: Result Comment: IG% - Immature Granulocytes (promyelocytes, myelocytes and metamyelocytes) > 1% indicates that a LEFT SHIFT is Present. Performed By: #### L 500.2500, L100.0100, [id number] #### [facility] Laboratory [address] [place], [address] Lymphocytes/100 WBC (Bld) 26.3 % Normal 19-41 [facility] Comment on above: Performed By: #### L 500.2500, L100.0100, [id number] #### [facility] Laboratory [address] [place], [address] MCH (RBC) [Entitic mass] 31.0 pg Normal 27.0-32.0 [facility] Comment on above: Performed By: #### L 500.2500, L100.0100, [id number] #### [facility] Laboratory [address] [place], [address] MCHC (RBC) [Mass/Vol] 33.2 g/dL Normal 32-36 [facility] Comment on above: Performed By: #### L 500.2500, L100.0100, [id number] #### [facility] Laboratory [address] [place], [address] MCV (RBC) [Entitic vol] 93.2 fL Normal 80-94 [facility] Comment on above: Performed By: #### L 500.2500, L100.0100, [id number] #### [facility] Laboratory [address] [place], [address] Monocytes/100 WBC (Bld) 8.1 % Normal 0-10 [facility] Comment on above: Performed By: #### L 500.2500, L100.0100, [id number] #### [facility] Laboratory [address] [place], [address] Neutrophils/100 WBC (Bld) 61.4 % Normal 47-70 [facility] Comment on above: Performed By: #### L 500.2500, L100.0100, [id number] #### [facility] Laboratory [address] [place], [address] Nucleated RBC (Bld) [#/Vol] 0 10*3/uL Normal 0-5 [facility] Comment on above: Performed By: #### L 500.2500, L100.0100, [id number] #### [facility] Laboratory [address] [place], [address] Platelet mean volume (Bld) [Entitic vol] 11.0 fL Normal 6.2-12.0 [facility] Comment on above: Performed By: #### L 500.2500, L100.0100, [id number] #### [facility] Laboratory [address] [place], [address] Platelets (Bld) [#/Vol] 251 10*3/uL Normal 150-450 [facility] Comment on above: Performed By: #### L 500.2500, L100.0100, L503.6005 #### [facility] Laboratory [address] [place], [address] RBC (Bld) [#/Vol] 5.33 10*6/uL Normal 4.6-6.2 [facility] Comment on above: Performed By: #### L 500.2500, L100.0100, L503.6005 #### [facility] Laboratory [address] [place], [address] RDW SD 46.4 fl High 35.1-43.9 [facility] Comment on above: Performed By: #### L 500.2500, L100.0100, L503.6005 #### [facility] Laboratory [address] [place], [address] WBC (Bld) [#/Vol] 12.6 10*3/uL High 4.4-11.0 [facility] Comment on above: Performed By: #### L 500.2500, L100.0100, L503.6005 #### [facility] Laboratory [address] [place], [address] Emergency Department Summary on 01-23-2024 Emergency Department Summary [facility] Medical Records Department [address] [place] [address] Emergency Department Summary 01/23/24 MR#: [id number] Acct: [id number] Name: GOOD PEREZ Rep #: [id number] : 1980 43 From: Alexis Mckeon DO PCP: Dr. Stefanie Park MD Status:DEP ER Location: ED HPI History of Present Illness Chief Complaint: Ear Problem Informant: patient Narrative Narrative: Patient is a 43-year-old male with past medical history of hypertension and depression. He states he noticed he was having left ear pain and swelling for approximately 1 week. He states there was no associated discharge or trauma prior to the swelling beginning. He went to an urgent care on Monday and was diagnosed with otitis externa and placed on Ciprodex eardrops. He states he used those for the past 24 hours but despite doing so he feels like he has had increased swelling and pain and therefore comes in for evaluation. Patient denies any history of immunosuppression [facility] Medical History (Updated 01/23/24 @ 02:[address] Alexis Mckeon DO) Cough Acute pharyngitis, unspecified Depression Seasonal allergies Shoulder pain HTN (hypertension) Home Medications ???Medication ???Instructions ???Recorded ???Last Taken ???Type amoxicillin 875 mg-potassium 1 tab PO BID #20 tabs 10/22/22 Unknown Rx clavulanate 125 mg tablet atorvastatin 10 mg tablet 10 mg PO DAILY 01/23/24 Unknown History ciprofloxacin HCl 500 mg tablet 500 mg PO BID 10 days #20 tabs 01/23/24 Unknown Rx (Cipro) escitalopram oxalate 10 mg tablet 10 mg PO DAILY 01/23/24 Unknown History hydrochlorothiazide 25 mg tablet 25 mg PO DAILY 01/23/24 Unknown History losartan 50 mg tablet 50 mg PO DAILY 01/23/24 Unknown History ondansetron 4 mg disintegrating 4 mg PO TID PRN nausea and 01/23/24 Unknown Rx tablet vomiting #21 tabs oxycodone-acetaminophen 5 mg-325 1 tab PO Q6H PRN pain 3 days #12 01/23/24 Unknown Rx mg tablet (Percocet) tabs Allergy/AdvReac Type Severity Reaction Status Date / Time codeine Allergy Intermediate Nausea Verified 01/22/24 21:30 Social History (Updated 10/22/22 @ 13:18 by Audra Muñiz) Smoking Status: Current every day smoker tobacco type: cigarettes ROS ROS ED Constitutional Constitutional ED: Denies chills or fever(s) ENT ENT ED: Reports ear pain left; Denies rhinorrhea or sore throat Cardiovascular Cardiovascular: Denies chest pain Respiratory/Chest Respiratory/Chest: Denies cough or dyspnea Gastrointestinal Gastrointestinal: Denies abdominal pain, diarrhea, nausea or vomiting Genitourinary Genitourinary ED: Denies dysuria Musculoskeletal Musculoskeletal: Denies myalgias or neck pain Integumentary Denies rash Neurologic Neurologic: Denies headache(s) Psychiatric Psychiatric: Reports depression Hematologic/Lymphatic Hematologic/Lymphatic: Denies easy bleeding or easy bruising Allergic/Immunologic Allergic/Immunologic ED: Denies mouth swelling or tongue swelling EXAM Physical Exam Const Vital Signs: 01/22/24 21:29 01/23/24 01:29 01/23/24 01:29 Temperature 97 F L 97.5 F L Temperature Source Temporal Pulse Rate 79 84 84 Respiratory Rate 15 16 16 Blood Pressure 169/98 H 150/115 H 150/115 H Blood Pressure Mean 121 126 126 Pulse Ox 100 97 97 Positive well nourished and well developed General Appearance ED: well developed HEENT HEENT Narrative: The left ear canal is severely edematous and the TM cannot be visualized secondary to this. There is no obvious discharge present in the canal. The patient's outer upper half of the left ear is also edematous without erythema or warmth. There is swelling along the left anterior aspect of the ear near the preauricular lymph node without obvious abscess formation. There is faint left sided mastoid tenderness with palpation but no overlying erythema or swelling. No tongue or lip swelling noted no oral lesions no airway edema or compromise No secondary findings to suggest infection of the posterior pharynx Right ear, ear canal, and tympanic membrane are normal Eyes PERRL and EOMs intact bilaterally Neck supple Neck Narrative: No nuchal rigidity or meningeal signs Resp normal respiratory effort and clear to auscultation bilaterally Cardio regular rate and regular rhythm Extremity normal to inspection Neuro oriented x3, CN's II-XII intact bilaterally and no sensory deficits noted Sensorium / Orientation: alert Motor Exam: strength 5/5 throughout Psych mental status grossly normal Skin Skin Narrative: Soft tissue swelling along the left preauricular lymph node and left ear as documented above MDM MDM MDM Narrative Medical decision making narrative: Patient arrived to the ER hypertensive but otherwise with stable vitals. He has (more content not included)... Normal [facility] Lactic Acidon 01-23-2024 Lactate [Moles/Vol] 1.1 mmol/L Normal 0.4-1.9 [facility] Comment on above: Order Comment: Y Performed By: #### L 500.2500, L100.0100, L503.6005 #### [facility] Laboratory [address] [place], [address] Orb Sella Post Fossa Ear w/o on 01-22-2024 Orb Sella Post Fossa Ear w/o [facility] Imaging Services [address] [place] [address] Orb Sella Post Fossa Ear w/o MR#: [id number] Acct: [id number] Name: GOOD PEREZ Rep #: [id number] : 1980 M 43 From: Ziyad Moran PCP: Dr. Stefanie Park MD Status: [facility] ER Study: Orb Sella Post Fossa Ear w/o Date of Exam: 11/07 Exam# [id number] Ordering [place]: [place] [id number] INDICATION: ? Mastoiditis EXAMINATION: CT IAC TEMPORAL BONES - CT IAC/PF/Orbit/Sella W/O Contrast Injection TECHNIQUE: Routine noncontrast CT protocol was performed of the internal auditory canals and temporal bones. 2-D reformats were performed by the technologist. The protocol utilizes one or more of the following dose reduction techniques: automated exposure control, adjustment of mA and/or kV according to patient size,and/or use of iterative reconstruction technique. IV Contrast dosage and agent: None. RADIATION DOSAGE (If Supplied By Facility): CTDIvol = ( 67.58 ) mGy, DLP = ( 1304.75 ) mGycm COMPARISON: FINDINGS: RIGHT SIDE: No fracture. SUPERFICIAL SOFT TISSUES: Unremarkable. MASTOID AIR CELLS: Well aerated, unremarkable. EXTERNAL AUDITORY CANALS: Clear. MIDDLE EAR CAVITIES: Well aerated. Ossicles and scutum intact. INTERNAL AUDITORY CANALS: Unremarkable bilateral internal auditory canals. No osseous erosion or widening of the canal. INNER EAR: Unremarkable cochlea, vestibule and semicircular canals. LEFT SIDE: No fracture. SUPERFICIAL SOFT TISSUES: Unremarkable. MASTOID AIR CELLS: Partial opacification of the mastoid air cells. EXTERNAL AUDITORY CANALS: There is complete opacification of the external auditory canal suggesting otitis externa. MIDDLE EAR CAVITIES: Partial opacification of the left middle ear suggesting otitis media. Ossicles and scutum intact. INTERNAL AUDITORY CANALS: Unremarkable bilateral internal auditory canals. No osseous erosion or widening of the canal. INNER EAR: Unremarkable cochlea, vestibule and semicircular canals. VISUALIZED BRAIN AND POSTERIOR FOSSA: Cerebello-pontine angles are unremarkable. CT/Orb Sella Post Fossa Ear w/o IMPRESSION: Otitis externa and otitis media on the left. Electronically Signed: Ziyad Blackburn MD at 1:28 EDT , CC: Dr. Stefanie Park MD; Alexis Mckeon DO Courtesy Van Driver: Signed Normal [facility] CNOVon 01-21-2024 CNOV Office Visit (UCWSTR ) GOOD PEREZ ([id number]) 1980 M Date Time Provider Department 01/21/24 11:45 AM FELIPA CINTRON [facility] During your visit today, we recorded the following information about you: Temperature Pulse Respiration Blood pressure 97.9 degrees 77/minute 18/minute 200/100 Weight 119 kg Felipa Cintron APRN.STENCILING MACHINE TENDER 01/21/2024 12:25 PM Signed This note was created using InvoiceSharingriter. Subjective Good Perez is a 43 year old male. Presents for left ear pain x5 day with drainage. Patient also reports pain extending down left side of face. Also patient BP noted to be elevated at 200/100, repeat 203/95. Objective BP 200/100 Pulse 77 Temp 36.6 ?C (97.9 ?F) Resp 18 Wt 119 kg (262 lb 5.6 oz) SpO2 97% Physical Exam PHYSICAL EXAMINATION: General appearance: Well appearing, alert, in no acute distress, well-hydrated, well nourished. Head: Normocephalic, no masses, lesions, tenderness or abnormalities Ears: Positive findings: pain with motion of pinna and tragus: on left, cerumen on left, amount Moderate, erythema and edema of ear canal: on left Assessment and Plan ASSESSMENT/PLAN: 1. Acute otitis externa of left ear, unspecified type - ICD9: 380.10, ICD10: H60.502 - CIPROFLOXACIN 0.3 %-DEXAMETHASONE 0.1 % EAR DROPS,SUSPENSION 2.Elevated BP -Patient reports he has not ate, slept, or taken his meds in about 24 hours. Encouraged patient to take medications, hydrate and rest. Patient is asymptomatic at this time. Encouraged patient to go to ER if he develops headache, vision changes, chest pain/pressure, verbalized understanding. Repeat BP prior to leaving 196/92. Felipa Cintron APRN.STENCILING MACHINE TENDER Allergies As of Date: 01/21/2024 Noted Allergy Reaction CODEINE 05/28/2019 14 - Other: See Comments Date Reviewed: 01/21/2024 Reviewed by: Sravani Castellano LPN - Fully Assessed Reason for Visit: Ear Pain [817] Cmt: Pain in L ear, drainage coming from ear. Swelling and pain into the jaw and side of head x 5 days Primary Visit Diagnosis:Acute otitis externa of left ear, unspecified type [H60.502] Order(s):ciprofloxacin- dexAMETHasone (CIPRODEX) 0.3-0.1 % otic suspensionUse 4 Drops in the left ear two times a day for 7 days.Disp: 7.5 mLRfl: 0 Prescriptions as of 01/21/2024 - losartan (COZAAR) 50 mg tablet Take 50 mg by mouth once daily. - hydroCHLOROthiazide 25 mg tablet Take 25 mg by mouth once daily. - escitalopram oxalate (LEXAPRO) 20 mg tablet Take 20 mg by mouth once daily. - atorvastatin (LIPITOR) 10 mg tablet Take 10 mg by mouth once daily. - ciprofloxacin-dexAMETHa sone (CIPRODEX) 0.3-0.1 % otic suspension Use 4 Drops in the left ear two times a day for 7 days. Problem List As Of Date: 01/21/2024 (None) Prescriptions ordered this encounter Disp Refills Start End CIPROFLOXACIN 0.3 %-DEXAMETHASONE 0.* 7.5 * 0 01/21/2024 01/28/2024 Route: LEFT EAR Sig: Use 4 Drops in the left ear two times a day for 7 days. Encounter Status:Closed by FELIPA CINTRON on 01/21/24 Normal [facility] CR Hip w/ Pelvis 2 or 3 View s Righton 05-01-2019 CR Hip w/ Pelvis 2 or 3 Views Right Patient Name: GOOD PEREZ Diagnostic Radiology Exam Date/Time 05/01/2019 12:54:25 EST Exam CR Hip w/ Pelvis 2 or 3 Views Right n Ordering Physician PARK, STEFANIE MACIAS Accession Number [id number] CPT4 Codes 38660 () Reason For Exam right hip pain Report Right hip 05/01/2019. Clinical Information: Right hip pain. Findings: An AP weightbearing view of the pelvis and AP and frogleg lateral views of the right hip reveal the bones to be well mineralized. There is no evidence of fracture or dislocation. The joint spaces are maintained. Impression: No acute process. Report Dictated on Final Dictating Physician: MD ARAUJO RISA Signed Date and Time: 05/01/2019 12:58 pm Signed by: MD ARAUJO RISA Transcribed Date and Time: 05/01/2019 1:00 Normal [facility] XR HIP RIGHT (2-3 VIEWS)Orde red By: Stefanie Park on 05-01-2019 Patient Name: GOOD PEREZ ---Diagnostic Radiology--- Exam Date/Time 05/01/2019 12:54:25 EST Exam CR Hip w/ Pelvis 2 or 3 Views Right n Ordering Physician MD PARK RACHEL NICOLE Accession Number [id number] CPT4 Codes 14403 () Reason For Exam right hip pain Report Right hip 05/01/2019. Clinical Information: Right hip pain. Findings: An AP weightbearing view of the pelvis and AP and frogleg lateral views of the right hip reveal the bones to be well mineralized. There is no evidence of fracture or dislocation. The joint spaces are maintained. Impression: No acute process. Report Dictated on --- Final --- Dictating Physician: MD ARAUJO RISA Signed Date and Time: 05/01/2019 12:58 pm Signed by: MD ARAUJO RISA Transcribed Date and Time: 05/01/2019 1:00 [facility] Work Phone: [facility] Incoming Radiology Results From [facility] - 05/01/2019 1:00 PM EST Patient Name: GOOD PEREZ ---Diagnostic Radiology--- Exam Date/Time 05/01/2019 12:54:25 EST Exam CR Hip w/ Pelvis 2 or 3 Views Right n Ordering Physician MD XAVIER, STEFANIE NG Accession Number [id number] CPT4 Codes 07895 () Reason For Exam right hip pain Report Right hip 05/01/2019. Clinical Information: Right hip pain. Findings: An AP weightbearing view of the pelvis and AP and frogleg lateral views of the right hip reveal the bones to be well mineralized. There is no evidence of fracture or dislocation. The joint spaces are maintained. Impression: No acute process. Report Dictated on --- Final --- Dictating Physician: MD GAYLE, SLIME Signed Date and Time: 05/01/2019 12:58 pm Signed by: MD ARAUJO RISA Transcribed Date and Time: 05/01/2019 1:00 [facility] Work Phone: Vital Signs Date Time Vital Sign Value Performing Clinician Facility 01-21-2024 12:01-0400 Body temperature 97.9 [degF] Felipa Cintron APRN.STENCILING MACHINE TENDER Work Phone: [facility] 01-21-2024 12:01-0400 Body weight 119 kg Felipa Cintron APRN.STENCILING MACHINE TENDER Work Phone: [facility] 01-21-2024 12:01-0400 Diastolic blood pressure 100 mm[Hg] Felipa Cintron APRN.STENCILING MACHINE TENDER Work Phone: [facility] Comment on above: checked bp x 2 , no meds this am 01-21-2024 12:01-0400 Heart rate 77 /min Felipa Cintron APRN.STENCILING MACHINE TENDER Work Phone: [facility] 01-21-2024 12:01-0400 Respiratory rate 18 /min Felipa Cintron APRN.STENCILING MACHINE TENDER Work Phone: [facility] 01-21-2024 12:01-0400 SaO2% (BldA) [Mass fraction] 97 % Felipa Cintron APRN.STENCILING MACHINE TENDER Work Phone: [facility] 01-21-2024 12:01-0400 Systolic blood pressure 200 mm[Hg] Felipa Cintron APRN.STENCILING MACHINE TENDER Work Phone: [facility] Comment on above: checked bp x 2 , no meds this am Encounters Encounter Date Encounter Type Care Provider Facility Start: 12-09-2024 ambulatory [facility] Facility:[facility] Start: 11-05-2024 End: 11-05-2024 Patient encounter procedure Giana SWEENEY -[facility] Work Phone: Start: 11-05-2024 End: 11-05-[address] Stefanie Park MD Work Phone: -[facility] Start: 06-16-2024 End: 06-17-2024 Emergency department patient visit [facility] Facility:[facility] Start: 05-31-2024 End: 05-31-2024 Telephone encounter Stefanie Park MD Work Phone: [facility] Clinical Communication Start: 01-22-2024 End: 01-23-2024 Emergency department patient visit [facility] Facility:[facility] Start: 01-21-2024 End: 01-21-2024 ambulatory [facility] Facility:[facility] Start: 01-21-2024 End: 01-21-2024 Patient encounter procedure Felipa Cintron APRN.STENCILING MACHINE TENDER Work Phone: [facility] Comment on above: Acute otitis externa of left ear, unspecified type (Primary Dx) Start: 09-15-2022 ambulatory [facility] Start: 09-15-2022 Patient encounter procedure Reema Lopez RN [facility] Start: 05-01-2019 End: 05-01-2019 Subsequent hospital visit by physician Stefanie Park MD Work Phone: [facility] Radiology Procedures Date Procedure Procedure Detail Performing Clinician Start: 05-01-2019 Radex hip unilateral with pelvis 2-3 views Stefanie Park MD Work Phone: Plan of Treatment Date Care Activity Detail Author Start: 09-17-2029 Urine microalbumin profile DTaP,Tdap,Td Vaccine (3 - Td or Tdap) [facility] Start: 2028 Zoster Vaccines (1 of 2) Zoster Vaccines (1 of 2) [facility] Start: 12-17-2023 Covid-19 Vaccine ( season) Covid-19 Vaccine ( season) [facility] Start: 12-17-2023 Influenza vaccination Influenza Vaccine (#1) [facility] Start: 11-08-2023 Diabetes Screening Diabetes Screening [facility] Start: 11-08-2023 Screening for malignant neoplasm of colon [facility] Start: 12-16-2022 Influenza vaccination Influenza Vaccine (Season Ended) [facility] Start: 12-16-2018 Influenza vaccination Flu vaccine (#1) [facility] Work Phone: Start: 2018 Lipid screen Lipid screen [facility] Work Phone: Start: 2013 Lipid panel Lipid Screening [facility] Start: 1997 DTaP/Tdap/Td Vaccines (1 - Tdap) DTaP/Tdap/Td Vaccines (1 - Tdap) [facility] Start: 1997 Hepatitis B Vaccine (1 of 3 - 19+ 3-dose series) Hepatitis B Vaccine (1 of 3 - 19+ 3-dose series) [facility] Start: 1996 Anxiety Screening Anxiety Screening [facility] Start: 1996 Depression Screening Depression Screening [facility] Start: 1996 Hepatitis C screening Hepatitis C Screening [facility] Start: 1996 HIV screening HIV Screening [facility] Start: 1993 HIV screen HIV screen [facility] Work Phone: Start: 1990 Depression Screening Depression Screening [facility] Start: 1989 DTaP/Tdap/Td vaccine (1 - Tdap) DTaP/Tdap/Td vaccine (1 - Tdap) [facility] Work Phone: Start: 1984 Pneumococcal vaccination Pneumococcal Vaccine (1 of 2 - PCV) [facility] Start: 1984 Pneumococcal Vaccine: Pediatrics (0 to 5 Years) and At-Risk Patients (6 to 64 Years) (1 - PCV) Pneumococcal Vaccine: Pediatrics (0 to 5 Years) and At-Risk Patients (6 to 64 Years) (1 - PCV) [facility] Start: 11-08-1979 MMR Vaccines (1 of 1 - Standard series) MMR Vaccines (1 of 1 - Standard series) [facility] Start: 05-10-1979 COVID-19 Vaccine (#1) COVID-19 Vaccine (#1) [facility] Start: 1978 Hepatitis B Vaccines (1 of 3 - 3-dose series) Hepatitis B Vaccines (1 of 3 - 3-dose series) [facility] Start: 1978 HIV screening HIV Screening [facility] Start: 1978 Lipid panel Lipid Panel [facility] Payers Date Payer Category Payer Self-pay 2023 Private Health Insurance [facility] PL[facility] [id number] 2023-Present [phone] [address] [place] [address] HMO [id number] 2023 Unknown [id number] Unknown [id number] Unknown [id number] Unknown [id number] Unknown [id number] Social History Date Type Detail Facility Tobacco smoking stat [facility] Unknown if ever smoked [facility] Work Phone: Start: 1980 Sex Assigned At Not on file [facility] Work Phone: Start: 01-21-2024 End: 06-16-2024 Tobacco smoking status WIIS Smokes tobacco daily [facility] Start: 04-17-1998 History of tobacco use Cigarette Smo ker [facility] Start: 01-21-2024 Cigarettes smoked current (pack per day) - Reported 1.5 [facility] Start: 01-21-2024 Tobacco use and exposure Smokeless tobacco non-user [facility] Start: 01-21-2024 Tobacco use panel [facility] Start: 1980 Sex assigned at Male [facility] Start: 01-08-2024 Gender identity Identifies as male gender (finding) [facility] Start: 01-08-2024 Sexual orientation Heterosexual (fin ding) [facility] Start: 11-15-2021 Sex Male (finding) Maicol Calhoun donato Telephone encounter Note 05-31-2024 Telephone Encounter - Ruma Mcleod - 05/31/2024 3:57 PM EST Note Date & Type Note Facility 05-31-2024 Telephone encount er Note Torres from [facility] is needing Clarification on medication if FLUoxetine HCl (10 MG Tablet) is replacing Escitalopram Oxalate (20 MG Tablet) or notand if Atorvastatin Calcium (10 MG Tablet) is replacing Rosuvastatin Calcium (10 MG Tablet) or not [facility] Note 05-31-2024 Telephone Encounter - Ruma Mcleod - 05/31/2024 3:57 PM EST Note Date & Type Note Facility 05-31-2024 Miscellaneous Notes Formattin g of this note might be different from the original. Torres from [facility] is needing Clarification on medication if FLUoxetine HCl (10 MG Tablet) is replacing Escitalopram Oxalate (20 MG Tablet) or notand if Atorvastatin Calcium (10 MG Tablet) is replacing Rosuvastatin Calcium (10 MG Tablet) or not documented in this encounter [facility] Progress note 01-21-2024 Note Date & Type Note Facility 01-21-2024 Note HNO ID: [id number] Author: FELIPA CINTRON APRN.STENCILING MACHINE TENDER Service: ? Author Type: Nurse Practitioner Type: Progress Notes Filed: 01/21/2024 12:25 Note Text: This note was created using InvoiceSharingriter. Subjective Good Perez is a 43 year old male. Presents for left ear pain x5 day with drainage. Patient also reports pain extending down left side of face. Also patient BP noted to be elevated at 200/100, repeat 203/95. Objective BP 200/100 Pulse 77 Temp 36.6 ?C (97.9 ?F) Resp 18 Wt 119 kg (262 lb 5.6 oz) SpO2 97% Physical Exam PHYSICAL EXAMINATION: General appearance: Well appearing, alert, in no acute distress, well-hydrated, well nourished. Head: Normocephalic, no masses, lesions, tenderness or abnormalities Ears: Positive findings: pain with motion of pinna and tragus: on left, cerumen on left, amount Moderate, erythema and edema of ear canal: on left Assessment and Plan ASSESSMENT/PLAN: 1. Acute otitis externa of left ear, unspecified type - ICD9: 380.10, ICD10: H60.502 - CIPROFLOXACIN 0.3 %-DEXAMETHASONE 0.1 % EAR DROPS,SUSPENSION 2.Elevated BP -Patient reports he has not ate, slept, or taken his meds in about 24 hours. Encouraged patient to take medications, hydrate and rest. Patient is asymptomatic at this time. Encouraged patient to go to ER if he develops headache, vision changes, chest pain/pressure, verbalized understanding. Repeat BP prior to leaving 196/92. Felipa Cintron APRN.[facility] History of Present illness Narrative 01-21-2024 Felipa Cintron APRN.[facility] - 01/21/2024 12:12 PM EDT Note Date & Type Note Facility 01-21-2024 History of Presen t illness Narrative This note was created using Brainient. Subjective Good Perez is a 43 year old male. Presents for left ear pain x5 day with drainage. Patient also reports pain extending down left side of face. Also patient BP noted to be elevated at 200/100, repeat 203/95. Objective BP 200/100 Pulse 77 Temp 36.6 C (97.9 F) Resp 18 Wt 119 kg (262 lb 5.6 oz) SpO2 97% Physical Exam PHYSICAL EXAMINATION: General appearance: Well appearing, alert, in no acute distress, well-hydrated, well nourished. Head: Normocephalic, no masses, lesions, tenderness or abnormalities Ears: Positive findings: pain with motion of pinna and tragus: on left, cerumen on left, amount Moderate, erythema and edema of ear canal: on left Assessment and Plan ASSESSMENT/PLAN: 1. Acute otitis externa of left ear, unspecified type - ICD9: 380.10, ICD10: H60.502 - CIPROFLOXACIN 0.3 %-DEXAMETHASONE 0.1 % EAR DROPS,SUSPENSION 2.Elevated BP -Patient reports he has not ate, slept, or taken his meds in about 24 hours. Encouraged patient to take medications, hydrate and rest. Patient is asymptomatic at this time. Encouraged patient to go to ER if he develops headache, vision changes, chest pain/pressure, verbalized understanding. Repeat BP prior to leaving 196/92. Felipa Cintron APRN.STENCILING MACHINE TENDER documented in this encounter [facility] Telephone encounter Note 09-15-2022 Telephone Encounter - Reema Lopez RN - 09/15/2022 7:14 AM EDT Note Date & Type Note Facility 09-15-2022 Telephone encounter Note Form atting of this note might be different from the original. S: Patient spoke with [facility] nurse regarding neck pain and . B: Onset of symptoms started yesterday. A: Started after outside working on the car and within 30 minutes it was stiff and painful, hard to move around, took Flexeril and 2 Aleve and did not help. Rates the pain as 9/10. R: Appointment scheduled Key due to availability, address given to the patient, instructed to bring phot ID, insurance info and medication list to the appointment. Patient understands care advice. No further needs at this time. Patient instructed to call back with new or worsening symptoms. Reason for Disposition [1] SEVERE neck pain (e.g., excruciating, unable to do any normal activities) AND [2] not improved after 2 hours of pain medicine Protocols used: Neck Pain or [id number] [facility] Note 09-15-2022 Telephone Encounter - Reema Lopez RN - 09/15/2022 7:14 AM EDT Note Date & Type Note Facility 09-15-2022 Miscellaneous Notes Formattin g of this note might be different from the original. S: Patient spoke with [facility] nurse regarding neck pain and . B: Onset of symptoms started yesterday. A: Started after outside working on the car and within 30 minutes it was stiff and painful, hard to move around, took Flexeril and 2 Aleve and did not help. Rates the pain as 9/10. R: Appointment scheduled Key due to availability, address given to the patient, instructed to bring phot ID, insurance info and medication list to the appointment. Patient understands care advice. No further needs at this time. Patient instructed to call back with new or worsening symptoms. Reason for Disposition [1] SEVERE neck pain (e.g., excruciating, unable to do any normal activities) AND [2] not improved after 2 hours of pain medicine Protocols used: Neck Pain or [id number]-MOCMK-RG documented in this encounter [facility] Evaluation note Note Date & Type Note Facility Evaluation note Diagnosis Acute otitis externa of left ear, unspecified type- Primary documented in this encounter [facility] Evaluation note Note Date & Type Note Facility Evaluation note No assessment information availa ble [facility] Work Phone: Reason for referral (narrative) Note Date & Type Note Facility Reason for referral (narrative) No reason for referral information available [facility] Work Phone: Summary Purpose Family History No Family History Records FoundNo Family History Records FoundNo Family History Records FoundNo Family History Records Found Advance Directives No Advanced Directives Records FoundDocuments on File Type Date Recorded Patient Nurses Medical Assistants Phlebotomists Expl anation Advance Directives and Living Will Power of Consultant Nurse Chief Complaint and Reason for Visit Chief Complaint Admit Date Positive FIT test November 05, 2024 1:58 pm Additional Source Comments (unrecognized sect ion and content) No Status Records FoundNo Status Records FoundNo Status Records FoundNo Status Records Found INFORMATION SOURCE (unrecogn ized section and content) DATE CREATED AUTHOR 11/08/2019 [facility] DATE CREATED AUTHOR AUTHOR'S ORGANIZ ATION 01/22/2024 [facility] DATE CREATED AUTHOR AUTHOR'S ORGANIZ ATION 06/02/2024 [facility] DATE CREATED AUTHOR AUTHOR'S ORGANIZ ATION 12/06/2024 [facility] Reason for Visit (unrecogniz ed section and content) Reason Onset Date Comments Neck Pain 09/15/2022 Reason Comments Ear Pain Pain in L ear, drain age coming from ear. Swelling and pain into the jaw and side of head x 5 days Care Teams (unrecognized sec tion and content) Apple Checker Relationship Specialty Start Date End Date Stefanie Park MD [address] [place] [address] PCP - General 05/28/19 Apple Checker Relationship Specialty Start Date End Date Stefanie Park MD [address] [place] [id number] PCP - General Family Medicine 11/22/23 Apple Checker Relationship Specialty Start Date End Date Stefanie Park MD [address] [facility] [place], [place] [id number] PCP - General 05/28/19 Team Status: Active Member Role/Relationship Status Dates Dr. Stefanie Park MD Primary Care Provider Active Team Status: Inactive Member Role/Relationship Status Dates Dr. Stefanie Park MD Primary Care Provider Active Start: November 05, 2024 End: November 05, 2024 Dr. Stefanie Park MD Referring Provider Active Start: November 05, 2024 End: November 05, 2024 ZAHRA Tomlinson Attending Provider Active S tart: November 05, 2024 End: November 05, 2024 Source Comments (unrecognize d section and content) In the event this informatio n is protected by the Federal Confidentiality of Alcohol and Drug Abuse Patient Records regulations: The Federal rules restrict any use of the information to criminally investigate or prosecute any alcohol or drug abuse patient.[facility] Goals (unrecognized section and content) Goals may be documented in a n alternate section FOR RECORDS PERTAINING TO PATIENTS WHO ARE OR HAVE BEEN ENROLLED IN A CHEMICAL DEPENDENCY/SUBSTANCEABUSE PROGRAM, SOME INFORMATION MAY BE OMITTED. This clinical summary was aggregated from multiple sources. Caution should be exercised in using it in the provision of clinical care. This summary normalizes information from multiple sources, and as a consequence, information in this document may materially change the coding, format and clinical context of patient data. In addition, data may be omitted in some cases. CLINICAL DECISIONS SHOULD BE BASED ON THE PRIMARY CLINICAL RECORDS. [email or web address] [facility]. provides no warranty or guarantee of the accuracy or completeness of information in this document.
--- NOTE | 2024-12-09 06:30 | COLBX_PTH ---
PATIENT: GOOD PEREZ LOC: EN U#:[id number] AGE/SX: 44/M ROOM: RE12/09/[address]: Dr. Rich Prado DO : 1980 BED: DIS: 12/09/2024 SPEC #: [id number] RECD: 12/09/24 08:45 STATUS: JOSUE REQ #: [id number] BOB: 12/09/24 06:[address]: Rich Prado DEPT: SURGICAL PATHOLOGY RECD BY: Chadwick Rivero ENTERED: 12/09/24 10:50 SP TYPE: COLON BX LUIS DR: Dr. Genevieve Park MD Tissues: A - COLON BIOPSY B - SPLENIC FLEXURE C - Sigmoid colon biopsy D - Rectum, NOS Procedures: Surgery Specimen Level IV HEADER OPERATION: Colonoscopy, polypectomy PRE-OP DIAGNOSIS: Screening for colorectal cancer TISSUE SUBMITTED: A- Hepatic flexure polyp biopsy, B- Splenic flexure polyp, C- Sigmoid polyps (x2) 1- bx, 1- snare, D- Rectal biopsy MICROSCOPIC DIAGNOSIS A. Large intestine, hepatic flexure polyp, biopsies: - Tubular adenoma B. Large intestine, splenic flexure polyp: - Hyperplastic polyp C. Large intestine, sigmoid polyp: - Inflammatory polyp - Two pieces of colonic mucosa with superficial hyperplastic features D. Rectum: * Tubular adenoma MICROSCOPIC DESCRIPTION Slides are reviewed. GROSS DESCRIPTION A. Received in fixative is one container labeled with the patient's name and designated Hepatic flexure polyp biopsy. The specimen consists of two irregular fragments of light ewing tissue, each measuring 0.4 cm. The specimen is totally submitted in one cassette. B. Received in fixative is one container labeled with the patient's name and designated Splenic flexure polyp. The specimen consists of three irregular fragments of light ewing tissue, admixed with flocculent material that measure 0.1 to 0.5 cm. The specimen is totally submitted in one cassette. C. Received in fixative is one container labeled with the patient's name and designated Sigmoid polyps. The specimen consists of two irregular fragments of light ewing tissue, each measuring 0.4 cm. The specimen is totally submitted in one cassette. D. Received in fixative is one container labeled with the patient's name and designated Rectal biopsy. The specimen consists of multiple irregular fragments of light ewing tissue that in aggregate measure 1.3 x 0.6 x 0.1 cm. The specimen is totally submitted in one cassette. [place] 12/09/2024 CPT:63382v7
--- NOTE | 2024-12-09 06:39 | HP.PCM_ITS ---
HPI - General General Date of Admission: 12/09/24 Date of Service: 12/09/24 Chief Complaint: screening colon HPI Narrative 43 M who presents regarding a positive fecal assay test. Referred by his PCP due to positive mail order stool testing. He denies family history of colon cancer and autoimmune disease. He denies abdominal pain, bloating, constipation, diarrhea, hematochezia, and melena. He reports complete BMs twice daily to every other day without straining. He reports difficulty chewing due to poor dentition. And reports that he can get combative when waking from anesthesia and states that it usually takes him longer to wake up from anesthesia. He smokes 2ppd, has the stuff that helps you quit, just needs to use it. He denies alcohol and illicit drug use. [facility] Medical History Trigeminal neuralgia Wears contact lenses Loose, teeth Anxiety Alcohol use High cholesterol Back pain Migraine headache Injury of head and neck Heartburn Shortness of breath on exertion Chronic cough Smoker History of pain when walking Acute pharyngitis, unspecified HTN (hypertension) Home Medications ?Medication ?Instructions ?Recorded ?Last Taken ?Type hydrochlorothiazide 25 mg tablet 25 mg PO DAILY Unknown History losartan 50 mg tablet 50 mg PO DAILY 01/23/24 Unkn own History ondansetron 4 mg disintegrating 4 mg PO TID PRN nausea and 01/23/24 Unknown Rx tablet vomiting #21 tabs fluoxetine 20 mg capsule 20 mg PO DAILY 12/05/24 Unkn own History loratadine 10 mg tablet (Claritin) 10 mg PO DAILY 11/16 05/11 Unknown History rosuvastatin 10 mg tablet 10 mg PO QHS 12/05/24 Unknow n History Allergy/AdvReac Type Severity Reaction Status Date / Time codeine Allergy Intermediate Nausea Verified 12/09/24 06:21 Surgical History Hx of appendectomy Hx of lumbar discectomy History of dental surgery Social History Smoking Status: Current every day smoker tobacco type: cigarettes ROS Constitutional Constitutional: Denies fatigue, fever(s), poor appetite, weight gain or weight loss Gastrointestinal Gastrointestinal: Denies belching, bloating, change in bowel habits, change in stool character, chewing difficulty, coffee ground emesis, constipation, cramping, diarrhea, dyspepsia, dysphagia, early satiety, excessive flatus, fecal incontinence, heartburn, hematemesis, hematochezia, hemorrhoids, loose stools, melena, nausea, odynophagia, rectal bleeding, tenesmus, vomiting or weight changes Vital Signs Vital Signs Vital Signs: 12/09/24 06:22 12/09/24 06:22 Temperature 97.3 F L Temperature Source Temporal Pulse Rate 81 Respiratory Rate 16 Respiratory Pattern Normal Blood Pressure 168/85 H Blood Pressure Mean 112 Blood Pressure Source Monitor Blood Pressure Position Sitting Blood Pressure Location Right Arm Pulse Ox 98 Oxygen Delivery Method Room Air Weight Weight: 264 lb 8.875 oz Body Mass Index (BMI) 37.9 Physical Exam Const alert, oriented x3, no apparent distress and healthy appearing General Appearance: cooperative GI normal to inspection, nondistended, normoactive bowel sounds, soft to palpation, non-tender and non-distended Percussion: normal to percussion Rectal Exam: deferred Assessment & Plan Assessment/Plan (1) Screening for colorectal cancer: PLAN: Assessment and Plan Assessment and Plan (1) Screening for colorectal cancer: Status: Acute Plan GOOD PEREZ, is a 43 M who presents to the office today for establishment with [facility] regarding a positive fecal assay test. Reviewed monitored anesthesia care during procedure. Discussed bowel prep at length with approved foods/liquids. Answered his questions. * schedule colonoscopy * office FU 4wks after procedure
--- NOTE | 2024-12-09 06:41 | PRE.ANES_ITS ---
ASA Classification* ASA Classification ASA Classification: 2 Assessment & Plan Anesthesia* Anesthesia Assessment Anesthesia Assessment: Discussed sedation and/or anesthesia options, risks, benefits, and alternatives with patient/parents/legal guardian/POA. Questions invited. The patient/parents/legal guardian/POA seems to understand and agrees to proceed with anesthesia plan. Reviewed the physical assessment, medical history, allergy history and patient home medications list prior to surgery/procedure/anesthetic and documented any changes. Performed airway and anesthesia risk assessments. Anesthesia Type Anesthesia Type: MAC History Source History Obtained from:: Patient and Chart Anesthesia Focused Assessment* Temperature: 97.3 F Pulse Rate: 81 Blood Pressure: 168/85 Respiratory Rate: 16 Pulse Ox: 98 Oxygen Delivery Method: Room Air Airway Assessment Mouth opens: >3 cm Mallampati Score: III Teeth Condition: Intact Neck Range of motion (ROM): Full ROM Labs Anesthesia Preop lab: CBC WBC 12.6 K/mm3 (4.4-11.0) H 01/23/24 00:08 4 RBC 5.33 M/mm3 (4.6-6.2) 01/23/24 00:08 01/23/24 Hgb 16.5 g/dL (13.0-16.5) 01/23/24 00:08 01/23/24 Hct 49.7 % (40-54) 01/23/24 00:08 01/23/24 Plt Count 251 K/mm3 (150-450) 01/23/24 00:08 01/23/24 CHEMISTRY Potassium 3.9 mmol/L (3.5-5.1) 01/23/24 00:08 01/23/24 Sodium 136 mmol/L (136-145) 01/23/24 00:08 01/23/24 BUN 14 mg/dL (7-18) 01/23/24 00:08 01/23/24 Creatinine 0.77 mg/dL (0.70-1.30) 01/23/24 00:08 01/23/24 Glucose 102 mg/dL (74-106) 01/23/24 00:08 01/23/24 COAG Pre-Assessment Diagnosis/Proposed Procedure Planned Operative Procedure(s): COLONOSCOPY Anesthesia History Anesthesia History - classification case manager: Anesthesia History - classification case manager Hx Hospitalization No 12/05/24 14:46 Any Problems With Anesthesia Yes: VERY SLOW TO AWAKEN/ 12/05/24 14:[address] Cholinesterase deficiency No 12/05/24 14:46 You/Your Family Experience No 12/05/24 14:46 fever (hyperthermia) with Relationship Recent Exposure to Contagious No 12/09/24 06:22 Disease Does patient have nerve No 12/05/24 14:46 stimulator Patient instructed to have device shut off --Does patient have Pacemaker No 12/09/24 06:22 or ICD? When Was Last Pacemaker Check QUESTION #4 FULL TEXT: You/Your Family Experience fever (hyperthermia) with Anesthesia Last Oral Intake Last Oral intake: Last Oral Intake NPO since 02:30 12/09/24 06:22 Meds taken in AM with sips of No 12/09/24 06:22 water? Meds patient instructed to take am of surgery PONV PONV - classification case manager: PONV - classification case manager Female No 12/05/24 14:46 HX of Motion Sickness No 12/05/24 14:46 HX of N/V After Surgery No 12/05/24 14:46 Non-Smoker No 12/05/24 14:46 Duration of Surgery greater No 12/05/24 14:46 than 60 minutes Number of Risk Factors PONV Score Height & Weight Height & Weight: Anesthesia: Height & Weight Height 5 ft 10 in 12/09/24 06:22 Weight: 120 kg 12/09/24 06:22 Body Mass Index (BMI) 37.9 12/09/24 06:22 Respiratory Assessment Respiratory Assessment - classification case manager: Respiratory Tract Infection Hx - classification case manager Hx Respiratory Tract Infection No 12/05/24 14:46 STOP Sleep Apnea STOP Sleep Apnea - classification case manager: STOP Sleep Apnea - classification case manager Hx Hypertension Yes: CONTROLLED WITH MED 12/05/24 14:46 Hx Sleep Apnea No 12/05/24 14:46 CPAP BIPAP Do you snore loudly (louder Yes 12/05/24 14:46 than talking or can be heard Do you often feel tired/ Yes 12/05/24 14:46 fatigued/ sleepy during daytime? Has anyone observed you stop No 12/05/24 14:46 breathing during sleep? STOP Results Positive 12/05/24 14:46 QUESTION #5 FULL TEXT : Do you snore loudly (louder than talking or can be heard through closed doors)? 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 Specify any problems Hx of Preganancy in last 3 N/A 12/05/24 14:46 Months Nurse Filling Out Transfusion DSCHRIBER 12/05/24 14:46 & Questions: Date: 12/05/24 12/05/24 14:46 Time: 14:48 12/05/24 14:46 Patient unable to answer at this time (ie. confused, unrespo /Reproduction History /Reproductive History - classification case manager: /Reproductive Hx- classification case manager Hx Now No 12/05/24 14:46 Gestational Age (in weeks): EDC: Hx Hx Para Hx Section SAB No 12/05/24 14:46 PFSH Medical History Trigeminal neuralgia Wears contact lenses Loose, teeth Anxiety Alcohol use High cholesterol Back pain Migraine headache Injury of head and neck Heartburn Shortness of breath on exertion Chronic cough Smoker History of pain when walking Acute pharyngitis, unspecified HTN (hypertension) Home Medications ?Medication ?Instructions ?Recorded ?Last Taken ?Type hydrochlorothiazide 25 mg tablet 25 mg PO DAILY Unknown History losartan 50 mg tablet 50 mg PO DAILY 01/23/24 Unkn own History ondansetron 4 mg disintegrating 4 mg PO TID PRN nausea and 01/23/24 Unknown Rx tablet vomiting #21 tabs fluoxetine 20 mg capsule 20 mg PO DAILY 12/05/24 Unkn own History loratadine 10 mg tablet (Claritin) 10 mg PO DAILY 11/16 05/11 Unknown History rosuvastatin 10 mg tablet 10 mg PO QHS 12/05/24 Unknow n History Allergy/AdvReac Type Severity Reaction Status Date / Time codeine Allergy Intermediate Nausea Verified 12/09/24 06:21 Surgical History Hx of appendectomy Hx of lumbar discectomy History of dental surgery Social History Smoking Status: Current every day smoker tobacco type: cigarettes Review of Systems (Anesthesia) ROS Narrative System reviewed and no additional complaints, except as documented. Physical Exam Const alert and oriented x3 Orientation / Consciousness: awake Nutritional Appearance: obese Resp normal respiratory effort and normal air movement Cardio regular rate and regular rhythm
[2024-12-09] MEDS: Lactated Ringers 1,000 ML 15 ML IV (06:43)
--- NOTE | 2024-12-09 07:27 | PCM.POST.ANE ---
Anesthesia: Postop Eval I Current Vital Signs Temperature: 97.3 F Pulse Rate: 61 Blood Pressure: 94/46 Respiratory Rate: 16 Pulse Ox: 94 Oxygen Delivery Method: Room Air Assessment Airway patent: Yes Spontaneous unlabored respirations: Yes Mental status: Asleep nausea: No Vomiting: No Anesthesia Complication: No Fluid Hydration Crystalloid volume administer (ml): 500 Total IV fluid infused: 500 Progress Note Anesthesia document: Postop Eval 1 completed: Yes
--- NOTE | 2024-12-09 07:31 | OP.PROVAT_ITS ---
12/09/2024 Genevieve Park Md Re : Colonoscopy procedure for Paco Panr Dear Dr. Park This procedure was performed on Monday, December 09, 2024. My impressions and recommendations are as follows: Impressions : - Localized moderate inflammation was found in the rectum and in the recto-sigmoid colon secondary to colitis. Biopsied. - Four 8 mm polyps in the sigmoid colon, at the splenic flexure and at the hepatic flexure, removed with a hot snare. Resected and retrieved. - One 4 mm polyp in the sigmoid colon, removed with a jumbo cold forceps. Resected and retrieved. - Diverticulosis in the sigmoid colon. - The examination was otherwise normal on direct and retroflexion views. - Non-bleeding internal hemorrhoids. Recommendations : - Repeat colonoscopy in 3 years for surveillance. - Continue present medications. My findings are described in the full procedure note, which is enclosed. If I can be of further assistance, please feel free to contact me at . Sincerely, Rich Prado DO 12/09/2024 7:30:13 AM This report has been signed electronically.
--- NOTE | 2024-12-09 07:31 | OP.COLON_ITS ---
Patient Name: Paco Dixon Procedure Date: 12/09/2024 6:48 AM Date of : 1980 Age: 44 Procedure: Colonoscopy Indications: Screening for colorectal malignant neoplasm Providers: Rich Prado DO Referring MD: Genevieve Park Md Medicines: Monitored Anesthesia Care Patient Profile: This is a 44 year old male. Refer to note in patient chart for documentation of history and physical. Last Colonoscopy: none. The patient's first colonoscopy is today. Complications: No immediate complications. Procedure: Pre-Anesthesia Assessment: - Prior to the procedure, a History and Physical was performed, and patient medications and allergies were reviewed. The patient is competent. The risks and benefits of the procedure and the sedation options and risks were discussed with the patient. All questions were answered and informed consent was obtained. Patient identification and proposed procedure were verified by the physician in the pre-procedure area. Mental Status Examination: alert and oriented. Airway Examination: normal oropharyngeal airway and neck mobility. Respiratory Examination: clear to auscultation. CV Examination: normal. Prophylactic Antibiotics: The patient does not require prophylactic antibiotics. Prior Anticoagulants: The patient has taken no anticoagulant or antiplatelet agents. ASA Grade Assessment: II - A patient with mild systemic disease. After reviewing the risks and benefits, the patient was deemed in satisfactory condition to undergo the procedure. The anesthesia plan was to use monitored anesthesia care (MAC). Immediately prior to administration of medications, the patient was re-assessed for adequacy to receive sedatives. The heart rate, respiratory rate, oxygen saturations, blood pressure, adequacy of pulmonary ventilation, and response to care were monitored throughout the procedure. The physical status of the patient was re-assessed after the procedure. After I obtained informed consent, the scope was passed under direct vision. Throughout the procedure, the patient's blood pressure, pulse, and oxygen saturations were monitored continuously. The Colonoscope was introduced through the anus and advanced to the cecum, identified by appendiceal orifice and ileocecal valve. The colonoscopy was performed without difficulty. The patient tolerated the procedure well. The quality of the bowel preparation was adequate. The ileocecal valve, appendiceal orifice, and rectum were photographed. Scope In: 6:52:24 AM Scope Withdrawal Time 0 hours 22 minutes 15 seconds Scope Out: 7:18:41 AM Total Procedure Duration Time 0 hours 26 minutes 17 seconds Findings: The perianal and digital rectal examinations were normal. Localized moderate inflammation characterized by congestion (edema), erosions and aphthous ulcerations was found in the rectum and in the recto-sigmoid colon. Biopsies were taken with a cold forceps for histology. Verification of patient identification for the specimen was done. Estimated blood loss was minimal. Four sessile polyps were found in the sigmoid colon, splenic flexure and hepatic flexure. The polyps were 8 mm in size. These polyps were removed with a hot snare. Resection and retrieval were complete. Verification of patient identification for the specimen was done. Estimated blood loss was minimal. A 4 mm polyp was found in the sigmoid colon. The polyp was sessile. The polyp was removed with a jumbo cold forceps. Resection and retrieval were complete. Verification of patient identification for the specimen was done. Estimated blood loss was minimal. A few small-mouthed diverticula were found in the sigmoid colon. The exam was otherwise without abnormality on direct and retroflexion views. Non-bleeding internal hemorrhoids were found during retroflexion. The hemorrhoids were Grade II (internal hemorrhoids that prolapse but reduce spontaneously). Impression: - Localized moderate inflammation was found in the rectum and in the recto-sigmoid colon secondary to colitis. Biopsied. - Four 8 mm polyps in the sigmoid colon, at the splenic flexure and at the hepatic flexure, removed with a hot snare. Resected and retrieved. - One 4 mm polyp in the sigmoid colon, removed with a jumbo cold forceps. Resected and retrieved. - Diverticulosis in the sigmoid colon. - The examination was otherwise normal on direct and retroflexion views. - Non-bleeding internal hemorrhoids. Recommendation: - Repeat colonoscopy in 3 years for surveillance. - Continue present medications. Procedure Code(s): --- Professional --- 12503, Colonoscopy, flexible; with removal of tumor(s), polyp(s), or other lesion(s) by snare technique 90420, 59, Colonoscopy, flexible; with biopsy, single or multiple CPT copyright 2021 [employer]. All rights reserved. The codes documented in this report are preliminary and upon engine specialist review may be revised to meet current compliance requirements. Rich Prado DO 12/09/2024 7:30:13 AM This report has been signed electronically. Number of Addenda: 0 Note Initiated On: 12/09/2024 6:48 AM
== END 2024-12-09 08:02 | disposition home or self-care (01) ==
LOC: EN 06:06 → AC 06:07
PROVIDERS: PCP Family Medicine; Referring Provider Family Medicine; Visit Provider Internal Medicine Gastroenterology
PROC: 0DJD8ZZ Inspection of Lower Intestinal Tract, Via Natural or Artificial Opening Endoscopic (ICD-10-PCS; CPT 45378; principal; 2024-12-09 06:25)
DX: Z12.11 Encounter for screening for malignant neoplasm of colon (principal); D12.3 Benign neoplasm of transverse colon; D12.8 Benign neoplasm of rectum; K63.5 Polyp of colon; K57.30 Diverticulosis of large intestine without perforation or abscess without bleeding; K64.1 Second degree hemorrhoids; I10 Essential (primary) hypertension; F41.9 Anxiety disorder, unspecified; E78.00 Pure hypercholesterolemia, unspecified; F17.210 Nicotine dependence, cigarettes, uncomplicated; Z90.49 Acquired absence of other specified parts of digestive tract; Z79.899 Other long term (current) drug therapy
CPT/HCPCS: 45385; 45380; 88305; J2405